=== PATIENT | female | born 1985 | race Caucasian/White ===

== ENCOUNTER 2018-09-17 09:52 | Emergency (ER) | payer MEDICAID, SELFPAY ==
[2018-09-17 09:54] VITALS: BP 125/70; PULSE 66; RESP 16; TEMP 36.6; O2SAT 100; BMI 21.0
--- NOTE | 2018-09-17 10:08 | ED.VIS.GEN ---
History of Present Illness Chief Complaint: Abscess Informant: Patient Onset: Days - 4 Context: Gradual Onset Timing: Continuous Quality: sore Location: left axilla Current Severity: Moderate Maximum Severity: Moderate Worsened by: palpation Relieved by: nothing Associated Symptoms: no systemic sx/fevers Narrative: Shaves her hair in this area. Has been intermittently draining small amount of purulent material. States she went to the [facility] emergency department yesterday, it was just as painful, they told her it was only a cyst and gave her an ice pack, discharged her home. Prior similar symptoms: No Recent Illness/Hospitalization: No Past Medical History - Allergies and Home Meds Allergies/Adverse Reactions: Allergies No Known Allergies Allergy (Verified 09/17/18 09:54) Primary Care Physician: [facility] Doctor,Out of [NON-STAFF] - As Needed Surgical History: appendectomy Smoking Status: Heavy Smoker (>10/day) Drugs: None - Family History Sibling Family History: Reports: Heart Disease - Palpitations; tachycardia Review of Systems General: Denies: Chills, Fever Gastrointestinal: Denies: Nausea, Vomiting Skin: Reports: Abscess. Denies: Rash Physical Exam Vital Signs/Narrative: Vital Signs Temp Pulse Resp BP Pulse Ox 09/17/18 09:54 97.9 F 66 16 125/70 H 100 Inital Vital Signs reviewed: Yes General: Well nourished, Well developed, No Acute Distress Head: Normocephalic, Atraumatic Extremities: No edema, - - FROM all 4 exts Skin: - - 3cm pointing tender abscess within left axilla. no active d/c. erythema limited to skin over top of abscess only. Neurological: Alert, Oriented x3, Cranial nerves II-XII grossly intact, Normal Strength, Normal Sensation Psychological: Normal affect, Normal Mood Diagnostic/Tx/Re-eval - Medical Decision Making This patient clearly has a cutaneous abscess. After I&D, she is doing better, there is a significant amount of pus expressed. I do not think cysts usually occur in this area, she was placed on Bactrim and advised to follow-up or return if there is any sign of recurrence. We discussed dressing changes. Procedures Procedure(s): Simple incision and drainage left axillary abscess -- prepped with isopropanol, anesthetized with 3 cc of 1% plain lidocaine, incised with a #11 blade with a significant amount of purulent material expressed. Probed in the loculated. Irrigated with saline. Dressed with bacitracin. Tolerated well. No complications. ED Disposition - Plan for ED Patient: Disposition: Home or Assisted Living Diagnosis: Cutaneous abscess of left axilla Instructions: ED Abscess IandD Prescriptions: Sulfamethoxazole/Trimethoprim [Bactrim Ds Tablet] 1 ea PO BID #20 tab Referrals: [facility] Doctor,Out of [NON-STAFF] - As Needed
--- NOTE | 2018-09-17 10:12 | ED.DCSUM_ITS ---
History of Present Illness Chief Complaint: Abscess Informant: Patient Onset: Days - 4 Context: Gradual Onset Timing: Continuous Quality: sore Location: left axilla Current Severity: Moderate Maximum Severity: Moderate Worsened by: palpation Relieved by: nothing Associated Symptoms: no systemic sx/fevers Narrative: Shaves her hair in this area. Has been intermittently draining small amount of purulent material. States she went to the [facility] emergency department yesterday, it was just as painful, they told her it was only a cyst and gave her an ice pack, discharged her home. Prior similar symptoms: No Recent Illness/Hospitalization: No Past Medical History - Allergies and Home Meds Allergies/Adverse Reactions: Allergies No Known Allergies Allergy (Verified 09/17/18 09:54) Primary Care Physician: [facility] Doctor,Out of [NON-STAFF] - As Needed Surgical History: appendectomy Smoking Status: Heavy Smoker (>10/day) Drugs: None - Family History Sibling Family History: Reports: Heart Disease - Palpitations; tachycardia Review of Systems General: Denies: Chills, Fever Gastrointestinal: Denies: Nausea, Vomiting Skin: Reports: Abscess. Denies: Rash Physical Exam Vital Signs/Narrative: Vital Signs Temp Pulse Resp BP Pulse Ox 09/17/18 09:54 97.9 F 66 16 125/70 H 100 Inital Vital Signs reviewed: Yes General: Well nourished, Well developed, No Acute Distress Head: Normocephalic, Atraumatic Extremities: No edema, - - FROM all 4 exts Skin: - - 3cm pointing tender abscess within left axilla. no active d/c. erythema limited to skin over top of abscess only. Neurological: Alert, Oriented x3, Cranial nerves II-XII grossly intact, Normal Strength, Normal Sensation Psychological: Normal affect, Normal Mood Diagnostic/Tx/Re-eval - Medical Decision Making This patient clearly has a cutaneous abscess. After I&D, she is doing better, there is a significant amount of pus expressed. I do not think cysts usually occur in this area, she was placed on Bactrim and advised to follow-up or return if there is any sign of recurrence. We discussed dressing changes. Procedures Procedure(s): Simple incision and drainage left axillary abscess -- prepped with isopropanol, anesthetized with 3 cc of 1% plain lidocaine, incised with a #11 blade with a significant amount of purulent material expressed. Probed in the loculated. Irrigated with saline. Dressed with bacitracin. Tolerated well. No complications. ED Disposition - Plan for ED Patient: Disposition: Home or Assisted Living Diagnosis: Cutaneous abscess of left axilla Instructions: ED Abscess IandD Prescriptions: Sulfamethoxazole/Trimethoprim [Bactrim Ds Tablet] 1 ea PO BID #20 tab Referrals: [facility] Doctor,Out of [NON-STAFF] - As Needed
[2018-09-17] MEDS: Smz/Tmp Ds Tablet 1 TABLET PO (11:40)
[2018-09-17] MEDS: HYDROcodone Bitartrate/Apap 5/325 Tablet PO (11:40)
[2018-09-17 11:42] VITALS: BP 118/77; PULSE 64; RESP 15
== END 2018-09-17 11:43 | disposition home or self-care (01) ==
PROVIDERS: Emergency Provider Emergency Medicine; Family Provider Registered Nurse; PCP Registered Nurse
DX: L02.412 Cutaneous abscess of left axilla (principal); F17.200 Nicotine dependence, unspecified, uncomplicated
CPT/HCPCS: 10060; 99283